=== PATIENT | male | born 1950 | race American Indian/Alaskan Native ===

== ENCOUNTER 2017-11-10 08:55 | Emergency (ER) | payer BC ==
[2017-11-10 09:50] VITALS: BP 197/95
--- NOTE | 2017-11-10 10:17 | XRay Report ---
Left hand 2 views: History: Swelling and pain status post GLF. Findings: No radiopaque foreign body identified. Arthritic changes are noted in the first carpometacarpal joint and the metacarpal phalangeal and interphalangeal joint. Suspicion of arthritic changes at the interphalangeal joint of second third fourth and fifth fingers. No periosteal reaction. Impression: Findings as detailed above. No acute fracture or dislocation.
== END 2017-11-10 10:15 | disposition left against medical advice (07) ==
LOC: ED 08:55
DX: Z53.21 Procedure and treatment not carried out due to patient leaving prior to being seen by health care provider (principal)